=== PATIENT | male | born 1965 | race Caucasian/White ===

== ENCOUNTER 2024-10-03 08:04 | Outpatient (AMB) | payer MEDICAID, SELFPAY ==
[2024-10-03 08:20] VITALS: BP 137/82; PULSE 82; RESP 19; TEMP 36.1; O2SAT 97; BMI 35.8
--- NOTE | 2024-10-03 08:20 | PD.ORTHCLVIS ---
Vital signs 10/03/24 08:20 Height 1.6 m Height Method Stated Weight 91.711 kg Weight Measurement Method Standing Scale BMI 35.8 BP 137/82 H Blood Pressure Source Automatic Cuff Blood Pressure Location Right Upper Arm Position Sitting Respiration 19 Pulse 82 Pulse Source Monitor Temp 97.0 F Temp Source Temporal Artery Scan Pulse Oximetry (%) 97 Oxygen Delivery Method Room Air Med/Allergies Allergies & Medications Allergies UNKNOWN PROTATE MEDICATION Allergy (Severe, Uncoded 10/03/24 08:27) Hives Medication Reconciliation lisinopril 20 mg tablet 20 mg PO QDAY 02/17/18 [History Confirmed 10/03/24] atorvastatin 40 mg tablet 40 mg PO QDAY 08/18/23 [History Confirmed 10/03/24] ertugliflozin 5 mg tablet (Steglatro) 5 mg PO QAM 08/18/23 [History Confirmed 10/03/24] insulin glargine 100 unit/mL (3 mL) subcutaneous pen (Basaglar KwikPen U-100 Insulin) 20 unit subcut BID 08/18/23 [History Confirmed 10/03/24] metformin 1,000 mg tablet 1,000 mg PO BID 08/18/23 [History Confirmed 10/03/24] sitagliptin phosphate 100 mg tablet (Januvia) 100 mg PO QDAY 08/18/23 [History Confirmed 10/03/24] Exam Exam Patient is in no acute distress and is cooperative with the examination today. Breathing is nonlabored. Patient has a normal mood and affect. The patient has a gait that is nonantalgic Bilateral extremities were evaluated and demonstrates sensation intact to light touch. Palpable pedal pulses are present. No significant edema is present. Bilateral hips were examined. The patient has no pain with log roll of the hips. Internal rotation to 30 degrees and external rotation to 30 degrees is painless. Negative FADIR. Left knee was examined today. The left knee is in reasonable alignment. Range of motion from 0-120 degrees. Knee is stable to varus and valgus as well as AP translation with <5mm. Patient has a negative McMurrays. There is no pain with patellofemoral compression and no crepitus noted. The knee is nontender to palpation. The right knee was also examined. The right knee is in neutral alignment. Range of motion from 0-120 degrees. Knee is stable to varus and valgus as well as AP translation with <5mm. Patient has a negative McMurrays. There is no pain with patellofemoral compression and no crepitus noted. The knee is significantly tender to touch. Just such as spending helps. There is a 5 cm scar That appears to be well-healed Assessment and Plan Problem List (1) Pain in right knee: Status: Acute Plan: Patient is a 59-year-old male with a lacerations noted to right knee 8 months ago. Reports significant pain. He is significantly tender to touch overlying skin almost like CRPS his pain is out of proportion. He is very concerned about disability and I told him this is my first time meeting him and we will need further workup first. I would like to rule out infection as well as obtain new knee x-rays. I was not there to see but I am curious of the laceration 1 and even if it was a traumatic arthrotomy is no surgery formed. I would like to see x-rays and go from there. Office Procedures GNS Level of Care Nursing/Assessment Patient Status: Established Patient Nursing Assessment/Reassesment: Medication Reconciliation, Update PMH in EMR and Vital Signs Coordination of Care: Complex Care and Chronic Disease 1-5, Education Complex Pt/Fam, Consent,records obtained, informed consent, Results/Orders obtained and Staff clarify orders Established Patient Charge Established Patient Point Assignment: 95 Established Patient Point Charge: EP Level 3 (80-115) MA Intake Visit Data Collection New Patient or Established: Established Patient (seen at [facility] within 3 years) Reason for Visit:: RIGHT KNEE PAIN Seen by Clinical Staff ONLY (RN/MA): No Verbal consent obtained for Telemed visit?: No 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 PCP or OBGYN visit in last 3 months: Yes Hx Now: No Do You Feel Safe at Home: Yes Authorities Contacted: N/A Questionairres Past Medical History Past Medical History Have you ever been diagnosed with any of the following: Neurological Problems Seizures: No Cardiology Problems Hypercholesterolemia: Yes Congestive Heart Failure: No Hypertension: Yes Respiratory Problems Chronic Obstructive Pulmonary Disease (COPD): No Asthma: Yes (child) Stomache/Intestinal Problems Hepatitis: Yes (B as a child) Obesity: Yes Genital/Urinary Problems Renal Disease: No Inguinal Hernia: Yes (bilateral) Prostate Cancer: Yes (positive biopsy, 5 yrs ago, did not want treatment) Benign Prostatic Hyperplasia: Yes Endocrine Problems Diabetes Mellitus Type 1: No Diabetes Mellitus Type 2: Yes Other Problems Hospitalization: Yes Shingles: No Blood Transfusions: No Blood Transfusion Reaction: No Anesthesia Reactions: No Chicken Pox: Yes Cancer: Yes Subjective Visit Visit for: new patient and knee Immunization / Flu Flu Vaccine in the Last 12 Months: No Flu Vaccine Exclusion Criteria: Refused by Patient and No Exclusion Criteria History of Present Illness Chief complaint: RIGHT KNEE PAIN Date of injury / onset of symptoms: JANUARY 2024 Prince is a 59-year-old male with right knee pain. This occurred after he had a laceration from sheet Metal in January. Itwas repaired in the emergency room. He reports that the knee is very sensitive to touch and that there is significant numbness and tingling. Personal History Occupation: UNEMPLOYED Red flag PMH: BMI and none BMI Counceling provided: Yes Pain Pain level (0-10): 10 Pain duration: CONSTANT Pain location: anterior and posterior Pain quality: sharp Pain timing: increases with activity and stairs Associated signs & symptoms: weakness and stiffness Ambulatory data Ambulatory device: none Treatments Improvement with previous injections: No Improvement with PT: No Improvement with NSAIDS: n/a Review of Systems Review of Systems: All systems negative unless otherwise noted in HPI.
== END 2024-10-03 08:38 | disposition home or self-care (01) ==
PROVIDERS: PCP Student in an Organized Health Care Education/Training Program; Referring Provider Student in an Organized Health Care Education/Training Program; Supervising Provider Orthopaedic Surgery Adult Reconstructive Orthopaedic Surgery; Visit Provider Orthopaedic Surgery Adult Reconstructive Orthopaedic Surgery
DX: M25.561 Pain in right knee (principal); S81.011D Laceration without foreign body, right knee, subsequent encounter; W45.8XXD Other foreign body or object entering through skin, subsequent encounter; E11.9 Type 2 diabetes mellitus without complications; I10 Essential (primary) hypertension; E78.00 Pure hypercholesterolemia, unspecified
CPT/HCPCS: 99213; G0463

== ENCOUNTER → 2024-10-03 | Outpatient (CLI) | payer MEDICAID, SELFPAY ==
--- NOTE | 2024-10-03 09:42 | XR_ITS ---
Examination: Right knee 4 views TECHNIQUE: AP oblique lateral axial right knee 4 views standing Exam date and time: October 03, 2024 1042 hours INDICATIONS: Right knee pain beginning 4 months ago. FINDINGS: Mild osteopenia Mild narrowing medial joint space Mild to moderate osteoarthritis patellofemoral joint No fracture or dislocation IMPRESSION: Mild narrowing medial joint space Mild to moderate osteoarthritis patellofemoral joint
== END | disposition home or self-care (01) ==
PROVIDERS: PCP Family Medicine; Referring Provider Orthopaedic Surgery Adult Reconstructive Orthopaedic Surgery; Visit Provider Orthopaedic Surgery Adult Reconstructive Orthopaedic Surgery
DX: M17.11 Unilateral primary osteoarthritis, right knee (principal); M25.861 Other specified joint disorders, right knee
CPT/HCPCS: 73564

== ENCOUNTER 2024-10-10 08:35 | Outpatient (AMB) | payer MEDICAID, SELFPAY ==
--- NOTE | 2024-10-10 08:42 | PD.ORTHCLVIS ---
Vital signs 10/10/24 08:43 Height 1.6 m Height Method Stated Weight 90.889 kg Weight Measurement Method Standing Scale BMI 35.5 BP 140/80 H Blood Pressure Source Automatic Cuff Blood Pressure Location Right Upper Arm Position Sitting Respiration 19 Pulse 81 Pulse Source Monitor Temp 97.9 F Temp Source Temporal Artery Scan Pulse Oximetry (%) 98 Oxygen Delivery Method Room Air Med/Allergies Allergies & Medications Allergies UNKNOWN PROTATE MEDICATION Allergy (Severe, Uncoded 10/10/24 08:43) Hives Medication Reconciliation lisinopril 20 mg tablet 20 mg PO QDAY 02/17/18 [History Confirmed 10/10/24] atorvastatin 40 mg tablet 40 mg PO QDAY 08/18/23 [History Confirmed 10/10/24] ertugliflozin 5 mg tablet (Steglatro) 5 mg PO QAM 08/18/23 [History Confirmed 10/10/24] insulin glargine 100 unit/mL (3 mL) subcutaneous pen (Basaglar KwikPen U-100 Insulin) 20 unit subcut BID 08/18/23 [History Confirmed 10/10/24] metformin 1,000 mg tablet 1,000 mg PO BID 08/18/23 [History Confirmed 10/10/24] sitagliptin phosphate 100 mg tablet (Januvia) 100 mg PO QDAY 08/18/23 [History Confirmed 10/10/24] Exam Exam Patient is in no acute distress and is cooperative with the examination today. Breathing is nonlabored. Patient has a normal mood and affect. The patient has a gait that is nonantalgic Bilateral extremities were evaluated and demonstrates sensation intact to light touch. Palpable pedal pulses are present. No significant edema is present. Bilateral hips were examined. The patient has no pain with log roll of the hips. Internal rotation to 30 degrees and external rotation to 30 degrees is painless. Negative FADIR. Left knee was examined today. The left knee is in reasonable alignment. Range of motion from 0-120 degrees. Knee is stable to varus and valgus as well as AP translation with <5mm. Patient has a negative McMurrays. There is no pain with patellofemoral compression and no crepitus noted. The knee is nontender to palpation. The right knee was also examined. The right knee is in neutral alignment. Range of motion from 0-120 degrees. Knee is stable to varus and valgus as well as AP translation with <5mm. Patient has a negative McMurrays. There is no pain with patellofemoral compression and no crepitus noted. The knee is significantly tender to touch. Just such as spending helps. There is a 5 cm scar That appears to be well-healed Assessment and Plan Problem List (1) Pain in right knee: Status: Acute Plan: Patient is a 59-year-old male with right knee pain after a laceration to his right knee 9 months ago. He reports that he thinks the ligaments were damaged. He has been range of motion and no instability based on my clinical exam. He reports that he feels like there is instability and he walks with a limp. We are ordering an MRI. In addition, I will order an ESR and CRP to make sure that there is no infection. He has painless passive range of motion So I think that it is unlikely. (2) Instability of right knee joint: Status: Acute Office Procedures GNS Level of Care Nursing/Assessment Patient Status: Established Patient Nursing Assessment/Reassesment: Medication Reconciliation, Update PMH in EMR and Vital Signs Coordination of Care: Complex Care and Chronic Disease 1-5, Education Complex Pt/Fam, Consent,records obtained, informed consent, Results/Orders obtained and Staff clarify orders Established Patient Charge Established Patient Point Assignment: 95 Established Patient Point Charge: EP Level 3 (80-115) MA Intake Visit Data Collection New Patient or Established: Established Patient (seen at [facility] within 3 years) Reason for Visit:: F/U XRAYS Seen by Clinical Staff ONLY (RN/MA): No Verbal consent obtained for Telemed visit?: No 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 PCP or OBGYN visit in last 3 months: Yes Hx Now: No Do You Feel Safe at Home: Yes Authorities Contacted: N/A Questionairres Past Medical History Past Medical History Have you ever been diagnosed with any of the following: Neurological Problems Seizures: No Cardiology Problems Hypercholesterolemia: Yes Congestive Heart Failure: No Hypertension: Yes Respiratory Problems Chronic Obstructive Pulmonary Disease (COPD): No Asthma: Yes (child) Smoking: No Smoking Cessation Counseling: No Stomache/Intestinal Problems Hepatitis: Yes (B as a child) Obesity: Yes Genital/Urinary Problems Renal Disease: No Inguinal Hernia: Yes (bilateral) Prostate Cancer: Yes (positive biopsy, 5 yrs ago, did not want treatment) Benign Prostatic Hyperplasia: Yes Endocrine Problems Diabetes Mellitus Type 1: No Diabetes Mellitus Type 2: Yes Other Problems Hospitalization: Yes Shingles: No Blood Transfusions: No Blood Transfusion Reaction: No Anesthesia Reactions: No Chicken Pox: Yes Cancer: Yes Subjective Visit Visit for: follow up visit, knee and x-rays Immunization / Flu Flu Vaccine in the Last 12 Months: No Flu Vaccine Exclusion Criteria: No Exclusion Criteria History of Present Illness Chief complaint: F/U XRAYS Date of injury / onset of symptoms: JANUARY 2024 Prince is a 59-year-old male with right knee pain. This occurred after he had a laceration from sheet Metal in January. It was repaired in the emergency room. The report from the ED physician said that there was no damage to the ligaments. He reports that the knee is very sensitive to touch and that there is significant numbness and tingling. He reports that his knee feels unstable Personal History Occupation: UNEMPLOYED Red flag PMH: BMI and none BMI Counceling provided: Yes Pain Pain level (0-10): 10 Pain duration: ALL DAY Pain location: inside (medial), outside (lateral) and anterior Pain quality: sharp Pain timing: increases with activity and stairs Associated signs & symptoms: stiffness Ambulatory data Ambulatory device: none Treatments Improvement with previous injections: No Improvement with PT: No Improvement with NSAIDS: n/a Review of Systems Review of Systems: All systems negative unless otherwise noted in HPI.
[2024-10-10 08:43] VITALS: BP 140/80; PULSE 81; RESP 19; TEMP 36.6; O2SAT 98; BMI 35.5
== END 2024-10-10 09:03 | disposition home or self-care (01) ==
LOC: HODSRG 08:35
PROVIDERS: PCP Student in an Organized Health Care Education/Training Program; Referring Provider Student in an Organized Health Care Education/Training Program; Supervising Provider Orthopaedic Surgery Adult Reconstructive Orthopaedic Surgery; Visit Provider Orthopaedic Surgery Adult Reconstructive Orthopaedic Surgery
DX: M25.561 Pain in right knee (principal); M25.361 Other instability, right knee; S81.011D Laceration without foreign body, right knee, subsequent encounter; W26.8XXD Contact with other sharp object(s), not elsewhere classified, subsequent encounter; I10 Essential (primary) hypertension; E78.00 Pure hypercholesterolemia, unspecified
CPT/HCPCS: 99213; G0463

== ENCOUNTER → 2024-11-02 | Outpatient (CLI) | payer MEDICAID, SELFPAY ==
--- NOTE | 2024-11-02 16:00 | XR_ITS ---
Exam: MRI knee without contrast, right INDICATIONS: A knee pain instability stiffness joint locking 9 months Date and time of exam: November 02, 2024 1625 hours Technique: Multiple axial, coronal, and sagittal sections on the knee have been obtained. T2-Weighted sagittal, fat-suppressed images, TR 3,500, TE 62, T2 weighted coronal fat-saturated images, TR 3,500, TE 62 Proton density sagittal sections, TR 1800, TE 31. T-1 weighted coronal images, TR 524, TE 13.0 Findings: Medial meniscus anterior horn intact. Medial meniscus, body is intact. Posterior horn medial meniscus intact. Lateral meniscus anterior horn is intact Lateral meniscus, body is intact Posterior horn lateral meniscus is intact Anterior cruciate ligament moderate sprain Posterior cruciate ligament appears intact. Knee effusion is small. Quadriceps and patellar tendons appear intact. There is no evidence of tendinosis. Inflammatory change or fracture of Hoffa's fat pad is not seen. Medial patellar facet demonstrates severe thinning. Lateral patellar facet cartilage demonstrates severe thinning. Trochlear cartilage demonstrates severe thinning. Marrow signal adequate. Medial collateral ligament appears intact. No meniscocapsular separation is seen. Illiotibial band and fibular collateral ligament are intact. Biceps femoris tendons appear intact. Medial femoral condylar articular cartilage demonstrates moderate thinning. Lateral femoral condylar articular cartilage demonstratesmoderate thinning. Tibial plateau cartilage demonstrates moderate thinning. Impression: Moderate sprain anterior cruciate ligament
== END | disposition home or self-care (01) ==
PROVIDERS: PCP Family Medicine; Referring Provider Orthopaedic Surgery Adult Reconstructive Orthopaedic Surgery; Visit Provider Orthopaedic Surgery Adult Reconstructive Orthopaedic Surgery
DX: S83.511A Sprain of anterior cruciate ligament of right knee, initial encounter (principal); X58.XXXA Exposure to other specified factors, initial encounter
CPT/HCPCS: 73721

== ENCOUNTER 2024-11-14 08:00 | Outpatient (AMB) | payer MEDICAID, SELFPAY ==
[2024-11-14 08:13] VITALS: BP 143/89; PULSE 83; RESP 19; TEMP 36.2; O2SAT 96; BMI 36.6
--- NOTE | 2024-11-14 08:13 | ORTHONT_ITS ---
Vital signs 11/14/24 08:13 Height 1.6 m Height Method Stated Weight 93.922 kg Weight Measurement Method Standing Scale BMI 36.6 BP 143/89 H Blood Pressure Source Automatic Cuff Blood Pressure Location Right Upper Arm Position Sitting Respiration 19 Pulse 83 Pulse Source Monitor Temp 97.2 F Temp Source Temporal Artery Scan Pulse Oximetry (%) 96 Oxygen Delivery Method Room Air Med/Allergies Allergies & Medications Allergies UNKNOWN PROTATE MEDICATION Allergy (Severe, Uncoded 11/14/24 08:14) Hives Medication Reconciliation lisinopril 20 mg tablet 20 mg PO QDAY 02/17/18 [History Confirmed 11/14/24] atorvastatin 40 mg tablet 40 mg PO QDAY 08/18/23 [History Confirmed 11/14/24] ertugliflozin 5 mg tablet (Steglatro) 5 mg PO QAM 08/18/23 [History Confirmed 11/14/24] insulin glargine 100 unit/mL (3 mL) subcutaneous pen (Basaglar KwikPen U-100 Insulin) 20 unit subcut BID 08/18/23 [History Confirmed 11/14/24] metformin 1,000 mg tablet 1,000 mg PO BID 08/18/23 [History Confirmed 11/14/24] sitagliptin phosphate 100 mg tablet (Januvia) 100 mg PO QDAY 08/18/23 [History Confirmed 11/14/24] meloxicam 7.5 mg tablet 7.5 mg PO QDAY #45 tabs 11/14/24 [Rx] Exam Exam Patient is in no acute distress and is cooperative with the examination today. Breathing is nonlabored. Patient has a normal mood and affect. The patient has a gait that is nonantalgic Bilateral extremities were evaluated and demonstrates sensation intact to light touch. Palpable pedal pulses are present. No significant edema is present. Bilateral hips were examined. The patient has no pain with log roll of the hips. Internal rotation to 30 degrees and external rotation to 30 degrees is painless. Negative FADIR. Left knee was examined today. The left knee is in reasonable alignment. Range of motion from 0-120 degrees. Knee is stable to varus and valgus as well as AP translation with <5mm. Patient has a negative McMurrays. There is no pain with patellofemoral compression and no crepitus noted. The knee is nontender to palpation. The right knee was also examined. The right knee is in neutral alignment. Range of motion from 0-120 degrees. Knee is stable to varus and valgus as well as AP translation with <5mm. Patient has a negative McMurrays. There is no pain with patellofemoral compression and no crepitus noted. The knee is significantly tender to touch. Just such as spending helps. There is a 5 cm scar That appears to be well-healed MRI was reviewed. This does not demonstrate any meniscal tear. It demonstrates mild to moderate arthritis Assessment and Plan Problem List (1) Pain in right knee: Status: Acute Plan: Patient is a 59-year-old male with right knee pain after a laceration to his right knee 9 months ago. He reports that he thinks the ligaments were damaged. He has been range of motion and no instability based on my clinical exam. He reports that he feels like there is instability and he walks with a limp. His MRI is relatively normal. He does have arthritis. We recommend anti- inflammatories. We also discussed a cortisone injection we cannot get 1 because of his blood sugars. Will start with therapy and see him back in approximately 2 months (2) Instability of right knee joint: Status: Acute Office Procedures GNS Level of Care Nursing/Assessment Patient Status: Established Patient Nursing Assessment/Reassesment: Medication Reconciliation, Update PMH in EMR and Vital Signs Coordination of Care: Complex Care and Chronic Disease 1-5, Education Complex Pt/Fam, Consent,records obtained, informed consent, Results/Orders obtained and Staff clarify orders Special Needs: Language special needs Established Patient Charge Established Patient Point Assignment: 95 Established Patient Point Charge: EP Level 3 (80-115) MA Intake Visit Data Collection New Patient or Established: Established Patient (seen at [facility] within 3 years) Reason for Visit:: F/U MRI Seen by Clinical Staff ONLY (RN/MA): No Verbal consent obtained for Telemed visit?: No 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 PCP or OBGYN visit in last 3 months: Yes Hx Now: No Do You Feel Safe at Home: Yes Authorities Contacted: N/A Questionairres Past Medical History Past Medical History Have you ever been diagnosed with any of the following: Neurological Problems Seizures: No Cardiology Problems Hypercholesterolemia: Yes Congestive Heart Failure: No Hypertension: Yes Respiratory Problems Chronic Obstructive Pulmonary Disease (COPD): No Asthma: Yes (child) Smoking: No Smoking Cessation Counseling: No Stomache/Intestinal Problems Hepatitis: Yes (B as a child) Obesity: Yes Genital/Urinary Problems Renal Disease: No Inguinal Hernia: Yes (bilateral) Prostate Cancer: Yes (positive biopsy, 5 yrs ago, did not want treatment) Benign Prostatic Hyperplasia: Yes Endocrine Problems Diabetes Mellitus Type 1: No Diabetes Mellitus Type 2: Yes Other Problems Hospitalization: Yes Shingles: No Blood Transfusions: No Blood Transfusion Reaction: No Anesthesia Reactions: No Chicken Pox: Yes Cancer: Yes Subjective Visit Visit for: follow up visit and MRI Immunization / Flu Flu Vaccine in the Last 12 Months: No Flu Vaccine Exclusion Criteria: No Exclusion Criteria History of Present Illness Chief complaint: F/U MRI [place]? is a pleasant 59-year-old male with right knee pain. We ordered an MRI has a lot of mechanical symptoms and significant pain. He reports his diabetes is currently under control but he cannot get cortisone injections. Ambulatory data Ambulatory device: none Treatments Improvement with previous injections: No Improvement with PT: No Improvement with NSAIDS: no Review of Systems Review of Systems: All systems negative unless otherwise noted in HPI.
== END 2024-11-14 08:24 | disposition home or self-care (01) ==
LOC: HODSRG 08:00
PROVIDERS: PCP Family Medicine; Referring Provider Family Medicine; Supervising Provider Orthopaedic Surgery Adult Reconstructive Orthopaedic Surgery; Visit Provider Orthopaedic Surgery Adult Reconstructive Orthopaedic Surgery
DX: M25.561 Pain in right knee (principal); M25.361 Other instability, right knee; S81.011D Laceration without foreign body, right knee, subsequent encounter; X58.XXXD Exposure to other specified factors, subsequent encounter; E11.9 Type 2 diabetes mellitus without complications; I10 Essential (primary) hypertension; E78.00 Pure hypercholesterolemia, unspecified
CPT/HCPCS: 99213; G0463

== ENCOUNTER 2024-12-13 10:47 | Outpatient (RCR) | payer MEDICAID, SELFPAY ==
--- NOTE | 2024-12-13 11:20 | PT.OIERPT ---
PT OP Initial Eval Patient Information Outpatient Physical Therapy Treatment Date: 12/13/24 Visit Reasons: Right knee pain Medical Diagnosis: Right Knee OA Treatment Dx #1: Right Knee Pain Start of Care: 12/13/24 Date of Onset: 1 year ago Smoking Status Smoking Status: Never smoker Initial Assessment Subjective: Pt is a 59 y/o male reports of chronic right knee pain (03/29) since last year where he cut his knee at work. Pt's MRI showed mild-moderate ACL sprain. Pt has limitation with walking, standing, chores, self care, balance, squatting, kneeling, and performing recreational activities. Objective: Right Knee AROM: 0 deg to 100 deg with pain Right Knee MMTs: grossly 4-/5 Right Hip MMTs: grossly 3+/5 Palpation: hypersensitive anterior knee where scar adhesion is noted from past surgery Assessment: Pt demonstrate right knee pain with mobility deficits leading to difficulty with ADLs. Pt will attempt physical therapy if pain persist Pt will be refer back to MD for further consultation. 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 1) Increase right knee AROM WFL in 6 wks to be able to perform squatting activities 2) Increase right knee MMTs grossly to 4/5 in 6 wks to be able to perform stairs and steps 3) Increase right hip MMTs grossly to 4-/5 in 6 wks to be able to walk more than 30 mins 4) Decrease knee pain to 2/10 in 6 wks to have a better gait mechanical apprentice 5) Indep with HEP Treatment Plan 1) Manual Therapy 2) Therapeutic Activities 3) Therapeutic Exercises 4) Modalities (ice, heat) 5) Balance Training 6) Gait Training Frequency and Duration: 2 x wk for 6 wks Certification Dates: 12/13/24 to 03/15/25 Procedure Charges OP PT Eval Mod Complex 30 minutes: Yes
== END 2024-12-18 23:59 | disposition home or self-care (01) ==
LOC: CPTX 10:47
PROVIDERS: PCP Orthopaedic Surgery Adult Reconstructive Orthopaedic Surgery; Referring Provider Orthopaedic Surgery Adult Reconstructive Orthopaedic Surgery; Visit Provider Orthopaedic Surgery Adult Reconstructive Orthopaedic Surgery
DX: M25.561 Pain in right knee (principal); G89.29 Other chronic pain; R26.2 Difficulty in walking, not elsewhere classified; R26.89 Other abnormalities of gait and mobility; S83.511D Sprain of anterior cruciate ligament of right knee, subsequent encounter; X58.XXXD Exposure to other specified factors, subsequent encounter
CPT/HCPCS: 97162

== ENCOUNTER 2025-01-09 09:09 | Outpatient (AMB) | payer MEDICAID, SELFPAY ==
[2025-01-09 09:43] VITALS: BP 147/76; PULSE 88; RESP 18; TEMP 36.6; O2SAT 96; BMI 37.9
--- NOTE | 2025-01-09 09:43 | PD.ORTHCLVIS ---
Vital signs 01/09/25 09:43 Height 1.6 m Height Method Stated Weight 97.182 kg Weight Measurement Method Standing Scale BMI 37.9 BP 147/76 H Blood Pressure Source Automatic Cuff Blood Pressure Location Right Upper Arm Position Sitting Respiration 18 Pulse 88 Pulse Source Monitor Temp 97.8 F Temp Source Temporal Artery Scan Pulse Oximetry (%) 96 Oxygen Delivery Method Room Air Med/Allergies Allergies & Medications Allergies UNKNOWN PROTATE MEDICATION Allergy (Severe, Uncoded 11/14/24 08:14) Hives Exam Exam Patient is in no acute distress and is cooperative with the examination today. Breathing is nonlabored. Patient has a normal mood and affect. The patient has a gait that is nonantalgic Bilateral extremities were evaluated and demonstrates sensation intact to light touch. Palpable pedal pulses are present. No significant edema is present. Bilateral hips were examined. The patient has no pain with log roll of the hips. Internal rotation to 30 degrees and external rotation to 30 degrees is painless. Negative FADIR. Left knee was examined today. The left knee is in reasonable alignment. Range of motion from 0-120 degrees. Knee is stable to varus and valgus as well as AP translation with <5mm. Patient has a negative McMurrays. There is no pain with patellofemoral compression and no crepitus noted. The knee is nontender to palpation. The right knee was also examined. The right knee is in neutral alignment. Range of motion from 0-120 degrees. Knee is stable to varus and valgus as well as AP translation with <5mm. Patient has a negative McMurrays. There is no pain with patellofemoral compression and no crepitus noted. The knee is significantly tender to touch. Just such as spending helps. There is a 5 cm scar That appears to be well-healed MRI was reviewed. This does not demonstrate any meniscal tear. It demonstrates mild to moderate arthritis Assessment and Plan Problem List (1) Pain in right knee: Status: Acute Plan: Patient is a 59-year-old male with right knee pain after a laceration to his right knee 9 months ago. He reports that he thinks the ligaments were damaged. He has been range of motion and no instability based on my clinical exam. His MRI is relatively normal. The patient is insistent that he has a nerve issue or neuropathy from his diabetes. I am going to defer to a pain management doctor or a neurologist as structurally His knee would not benefit from any surgical intervention. He has tried physical therapy and has received minimal improvement. (2) Instability of right knee joint: Status: Acute Office Procedures GNS Level of Care Nursing/Assessment Patient Status: Established Patient Nursing Assessment/Reassesment: Medication Reconciliation, Update PMH in EMR and Vital Signs Coordination of Care: Complex Care and Chronic Disease 1-5, Education Complex Pt/Fam, Consent,records obtained, informed consent, Results/Orders obtained and Staff clarify orders Established Patient Charge Established Patient Point Assignment: 95 Established Patient Point Charge: EP Level 3 (80-115) Questionairres Past Medical History Past Medical History Have you ever been diagnosed with any of the following: Neurological Problems Seizures: No Cardiology Problems Hypercholesterolemia: Yes Congestive Heart Failure: No Hypertension: Yes Respiratory Problems Chronic Obstructive Pulmonary Disease (COPD): No Asthma: Yes (child) Smoking: No Smoking Cessation Counseling: No Stomache/Intestinal Problems Hepatitis: Yes (B as a child) Obesity: Yes Genital/Urinary Problems Renal Disease: No Inguinal Hernia: Yes (bilateral) Prostate Cancer: Yes (positive biopsy, 5 yrs ago, did not want treatment) Benign Prostatic Hyperplasia: Yes Endocrine Problems Diabetes Mellitus Type 1: No Diabetes Mellitus Type 2: Yes Other Problems Hospitalization: Yes Shingles: No Blood Transfusions: No Blood Transfusion Reaction: No Anesthesia Reactions: No Chicken Pox: Yes Cancer: Yes Subjective Visit Visit for: follow up visit and MRI Immunization / Flu Flu Vaccine in the Last 12 Months: No Flu Vaccine Exclusion Criteria: No Exclusion Criteria History of Present Illness Chief complaint: F/U MRI [place]? is a pleasant 59-year-old male with right knee pain. We ordered an MRI has a lot of mechanical symptoms and significant pain. He reports his diabetes is currently under control but he cannot get cortisone injections. Personal History Red flag PMH: BMI BMI Counceling provided: Yes Pain Pain level (0-10): 10 Pain duration: ALL DAY Pain location: inside (medial), outside (lateral), anterior and posterior Ambulatory data Ambulatory device: none Treatments Improvement with previous injections: No Improvement with PT: No Improvement with NSAIDS: no Review of Systems Review of Systems: All systems negative unless otherwise noted in HPI.
== END 2025-01-09 10:13 | disposition home or self-care (01) ==
LOC: HODSRG 09:09
PROVIDERS: PCP Family Medicine; Referring Provider Family Medicine; Supervising Provider Orthopaedic Surgery Adult Reconstructive Orthopaedic Surgery; Visit Provider Orthopaedic Surgery Adult Reconstructive Orthopaedic Surgery
DX: M25.561 Pain in right knee (principal); M25.361 Other instability, right knee; E78.00 Pure hypercholesterolemia, unspecified; E11.40 Type 2 diabetes mellitus with diabetic neuropathy, unspecified; I10 Essential (primary) hypertension; J45.909 Unspecified asthma, uncomplicated
CPT/HCPCS: 99213; G0463

== ENCOUNTER 2025-01-17 09:30 | Outpatient (RCR) | payer MEDICAID, SELFPAY ==
--- NOTE | 2024-12-19 08:38 | PT.ODAYNRPT ---
PT Outpatient Daily Note OP Daily Note Outpatient Physical Therapy Treatment Date: 12/19/24 Visit Reasons: RIGHT KNEE PAIN Subjective: Pt reports knee pain, shared that knee hyperextend and ephraim when walkling. Objective: Please see flow sheet for ther ex list. Assessment: Pt has difficulty with SAQ and unable to perform SLR exercises due to anterior knee pain and weakness. Plan: Assess response to treatment. Length of Time (minutes) of Treatment: 30 Minutes Procedure Charges Therapeutic Exercise 30 minutes: Yes
--- NOTE | 2024-12-25 10:40 | PT.ODAYNRPT ---
PT Outpatient Daily Note OP Daily Note Outpatient Physical Therapy Treatment Date: 12/25/24 Visit Reasons: RIGHT KNEE PAIN Subjective: Pt's knee is hurting more. Pt's notice more pain after last session Objective: Please see flow chart for list of ther ex performed Assessment: difficult time tolerating all supine exercises; frequent reports of pain with all exercises. Pt offer ice but decline post PT session Plan: Continue with PT Length of Time (minutes) of Treatment: 30 Minutes Procedure Charges Therapeutic Exercise 30 minutes: Yes
--- NOTE | 2024-12-28 10:47 | PT.ODAYNRPT ---
PT Outpatient Daily Note OP Daily Note Outpatient Physical Therapy Treatment Date: 12/28/24 Visit Reasons: RIGHT KNEE PAIN Subjective: Pt reports R knee is doing the same, continues to have pain and swelling with light activities. Objective: Please see flow sheet for ther ex list. Assessment: Pt demonstrates poor activity tolerance. Performed light AROM interventions, pt not able to perform SLR due to abdominal pain and discomfort from hernia surgical removal that was done over a year ago. Plan: Continue with poC. Length of Time (minutes) of Treatment: 30 Minutes Procedure Charges Therapeutic Exercise 30 minutes: Yes
--- NOTE | 2025-01-03 09:42 | PT.ODAYNRPT ---
PT Outpatient Daily Note OP Daily Note Outpatient Physical Therapy Treatment Date: 01/03/25 Visit Reasons: RIGHT KNEE PAIN Subjective: Pt's knee is the same and continues to hurt with prolonged standing and walking. Objective: Please see flow chart for list of ther ex performed Assessment: tolerate exercises with minimal pain. Post ice helped with soreness and pain. Plan: Continue with PT Length of Time (minutes) of Treatment: 30 Minutes Procedure Charges Therapeutic Exercise 30 minutes: Yes
--- NOTE | 2025-01-11 11:52 | PT.ODAYNRPT ---
PT Outpatient Daily Note OP Daily Note Outpatient Physical Therapy Treatment Date: 01/11/25 Visit Reasons: RIGHT KNEE PAIN Subjective: Pt's right knee is feeling a little better. Surgeon wants patient to continue physical therapy for a few more weeks. Surgeon is also referring patient out for a neuro-consult regarding decrease right LE reflex Objective: Please see flow chart for list of ther ex performed Assessment: patient refused SLR due to exercise irritate hernia. Unable to progress patient due to reported limitation and inability to attempt instructed exercises. Pt continue to perform supine exercises to his tolerance Plan: Continue with PT Length of Time (minutes) of Treatment: 30 Minutes Procedure Charges Therapeutic Exercise 30 minutes: Yes
--- NOTE | 2025-01-17 10:29 | PT.ODAYNRPT ---
PT Outpatient Daily Note OP Daily Note Outpatient Physical Therapy Treatment Date: 01/17/25 Visit Reasons: RIGHT KNEE PAIN Subjective: Pt reports R knee is moving better but still has pain. Objective: Please see flow sheet for ther ex list. Assessment: Added interventions completed with good tolerance indicating progress. Plan: Continue with POC, assess response to treatment. Length of Time (minutes) of Treatment: 30 Minutes Procedure Charges Therapeutic Exercise 30 minutes: Yes
== END 2025-01-17 23:59 | disposition home or self-care (01) ==
LOC: CPTX 09:30
PROVIDERS: PCP Orthopaedic Surgery Adult Reconstructive Orthopaedic Surgery; Referring Provider Orthopaedic Surgery Adult Reconstructive Orthopaedic Surgery; Visit Provider Orthopaedic Surgery Adult Reconstructive Orthopaedic Surgery
DX: M25.561 Pain in right knee (principal); R26.2 Difficulty in walking, not elsewhere classified; R26.89 Other abnormalities of gait and mobility; G89.29 Other chronic pain; S83.511D Sprain of anterior cruciate ligament of right knee, subsequent encounter; W45.8XXD Other foreign body or object entering through skin, subsequent encounter; M17.11 Unilateral primary osteoarthritis, right knee
CPT/HCPCS: 97110

== ENCOUNTER 2025-02-13 08:00 | Outpatient (RCR) | payer MEDICAID, SELFPAY ==
--- NOTE | 2025-01-19 12:46 | PT.ODAYNRPT ---
PT Outpatient Daily Note OP Daily Note Outpatient Physical Therapy Treatment Date: 01/19/25 Visit Reasons: right knee pain Subjective: Pt's knee is better. Pt mentioned he was sore from the bike and new exercises from last session Objective: Please see flow chart for list of ther ex performed Assessment: tolerate exercises with minimal pain and able to resume with closed chain exercises Plan: Continue with PT Length of Time (minutes) of Treatment: 30 Minutes Procedure Charges Therapeutic Exercise 30 minutes: Yes
--- NOTE | 2025-01-24 08:44 | PT.ODAYNRPT ---
PT Outpatient Daily Note OP Daily Note Outpatient Physical Therapy Treatment Date: 01/24/25 Visit Reasons: right knee pain Subjective: Pt's knee pain is better. Standing and walking is getting easier. Objective: Please see flow chart for list of ther ex performed Assessment: tolerate exercises with minimal pain Plan: Continue with PT Length of Time (minutes) of Treatment: 30 Minutes Procedure Charges Therapeutic Exercise 30 minutes: Yes
--- NOTE | 2025-01-26 10:24 | PT.ODAYNRPT ---
PT Outpatient Daily Note OP Daily Note Outpatient Physical Therapy Treatment Date: 01/26/25 Visit Reasons: right knee pain Subjective: Pt's having knee pain today. Pt mentioned it's one of those bad days . Objective: Please see flow chart for list of ther ex performed Assessment: tolerate exercises with minimal pain Plan: Continue with PT Length of Time (minutes) of Treatment: 30 Minutes Procedure Charges Therapeutic Exercise 30 minutes: Yes
--- NOTE | 2025-02-06 08:33 | PT.ODAYNRPT ---
PT Outpatient Daily Note OP Daily Note Outpatient Physical Therapy Treatment Date: 02/06/25 Visit Reasons: right knee pain Subjective: Pt's knee pain is okay. Pt does not have any concerns. Pt mentioned hernia hurts more Objective: Please see flow chart for list of ther ex performed Assessment: tolerate exercises with minimal pain Plan: Continue with PT Length of Time (minutes) of Treatment: 30 Minutes Procedure Charges Therapeutic Exercise 30 minutes: Yes
--- NOTE | 2025-02-13 14:34 | PT.ODS1RPT ---
PT OP Progress/Discharge Note Date of Service: 02/13/25 Progress Note/DC Note Progress Note/Discharge Note: DC Note Patient Information Visit Reasons: right knee pain Medical Diagnosis: Right Knee OA Treatment Dx #1: Right Knee Pain Service Discharge Date: 02/13/25 Status Subjective: Pt's knee still painful with certain activities. Since starting physical therapy Pt has been able to walk, stand, perform chores, and ADLs with less limitation. At this time Pt feels comfortable being release from care with exercises to continue at home. Objective: Right Knee AROM: 0 deg to 105 deg Right Knee MMTs: grossly 4-/5 Right Hip MMTs: grossly 3+/5 SLS: unable Assessment: Pt demonstrate slight improvement with knee AROM and strength, however, no change in pain leading to difficulty with ADLs. At this time Pt will no longer benefit from physical therapy due to minimal progression towards goals. Pt was instructed on HEP last session and educated to continue exercises to maintain overall mobility. Pt performed all exercises safely, thank you for your referrals. Plan: D/C home with HEP and follow up with MD DELGADO Procedure Charges Therapeutic Exercise 30 minutes: Yes
== END 2025-02-17 23:59 | disposition home or self-care (01) ==
LOC: CPTX 08:00
PROVIDERS: PCP Orthopaedic Surgery Adult Reconstructive Orthopaedic Surgery; Referring Provider Orthopaedic Surgery Adult Reconstructive Orthopaedic Surgery; Visit Provider Orthopaedic Surgery Adult Reconstructive Orthopaedic Surgery
DX: M25.561 Pain in right knee (principal); G89.29 Other chronic pain; R26.2 Difficulty in walking, not elsewhere classified; R26.89 Other abnormalities of gait and mobility; S83.511D Sprain of anterior cruciate ligament of right knee, subsequent encounter; X58.XXXD Exposure to other specified factors, subsequent encounter; M17.11 Unilateral primary osteoarthritis, right knee
CPT/HCPCS: 97110